=== PATIENT | female | born 1960 | race Caucasian/White ===

== ENCOUNTER 2025-01-07 08:12 | Emergency (ER) | payer SELFPAY ==
[2025-01-07 08:32] VITALS: BP 144/82; PULSE 90; RESP 20; TEMP 97.9; BMI 24.2
== END 2025-01-07 09:01 | disposition home or self-care (01) ==
LOC: JER 08:12
DX: Z48.02 Encounter for removal of sutures (principal)
CPT/HCPCS: 99281-25